=== PATIENT | female | born 1960 | race Caucasian/White ===

== ENCOUNTER 2018-02-28 13:14 | Outpatient (CLI) | payer OTHER ==
[~2018-02-28 13:14] MED LIST: Iopamidol 370 76% 100 ML VIAL ONE
--- NOTE | 2018-02-28 15:11 | CT ---
CT ABDOMEN AND PELVIS WITH IV AND ORAL CONTRAST: History: Left lower quadrant pain. Constipation. Bowel abnormalities. FINDINGS: Lung bases are clear. Liver, spleen, kidneys, adrenal glands, and pancreas have a normal CT appearanc e. Urinary bladder is unremarkable. Bowel has a normal appearance without evidence of obstruction. Ap pendix is not inflamed. No significant colon abnormalities are apparent on CT. IMPRESSION: No significant abnormalities are demonstrated. POS: [facility]
== END 2018-02-28 13:15 | disposition home or self-care (01) ==
LOC: SCSCT 13:14
PROVIDERS: ATTEND Internal Medicine Gastroenterology
DX: K59.00 Constipation, unspecified (principal); R10.32 Left lower quadrant pain
CPT/HCPCS: 74177

== ENCOUNTER 2022-05-04 13:43 | Outpatient (CLI) | payer BC | END 2022-05-04 13:44 | disposition home or self-care (01) | LOC: BICMAMMO 13:43 | PROVIDERS: ATTEND Family Medicine | DX: Z12.31 Encounter for screening mammogram for malignant neoplasm of breast (principal); Z80.3 Family history of malignant neoplasm of breast | CPT/HCPCS: 77063; 77067 ==

== ENCOUNTER 2022-07-01 08:08 | Outpatient (CLI) | payer BC ==
[2022-07-01] MEDS ORDERED: Iopamidol-370 76% 500 ML 1 ML ONE (12:26)
== END 2022-07-01 08:09 | disposition home or self-care (01) ==
LOC: BICCT 08:08
PROVIDERS: ATTEND Physician Assistant Medical
DX: R10.31 Right lower quadrant pain (principal); R19.4 Change in bowel habit
CPT/HCPCS: 74177; 82565; Q9967

== ENCOUNTER 2024-01-24 14:02 | Outpatient (CLI) | payer MEDICARE | END 2024-01-24 14:03 | disposition home or self-care (01) | LOC: BICMAMMO 14:02 | PROVIDERS: ATTEND Obstetrics & Gynecology | DX: Z12.31 Encounter for screening mammogram for malignant neoplasm of breast (principal); Z80.3 Family history of malignant neoplasm of breast | CPT/HCPCS: 77063; 77067 ==